=== PATIENT | male | born 1985 | race Caucasian/White ===

== ENCOUNTER 2019-06-04 12:02 | Emergency (ER) | payer BC ==
[~2019-06-04] VITALS: Ht 175.3 cm; Wt 106.1 kg
[2019-06-04 12:11] VITALS: BP 144/90
[2019-06-04] MEDS ORDERED: LIDOCAINE 0.5%-EPI 1:200,000 50 ML VIAL ONE (12:49)
--- NOTE | 2019-06-04 13:00 | NUR ---
INCISION AND DRAINAGE DON BY ROBERTO DURÁN.
--- NOTE | 2019-06-04 13:46 | NUR ---
Patient discharged to home in stable condition. Written and verbal after care instructions given. Patient verbalizes understanding of instruction.
== END 2019-06-04 13:47 | disposition home or self-care (01) ==
LOC: ER 12:08
DX: L02.31 Cutaneous abscess of buttock (principal); F31.9 Bipolar disorder, unspecified; Z98.890 Other specified postprocedural states
CPT/HCPCS: 10060; 99283; A6403; J3490

== ENCOUNTER 2019-06-06 20:50 | Emergency (ER) | payer BC ==
[~2019-06-06] VITALS: Ht 175.3 cm; Wt 104.3 kg
--- NOTE | 2019-06-06 20:54 | NUR ---
"S/P ABCESS REMOVAL 06/04, BEEN WEAK AND NAUSEATED SINCE. BEEN DRY HEAVING AT AMBULANCE" PT AAOX4, -SOB, NAD NOTED, VSS ,PENDING MD HADDAD
[2019-06-06] MEDS ORDERED: diphenhydrAMINE HCL 50 MG/ML VIAL IV ONE (21:00)
[2019-06-06] MEDS ORDERED: ONDANSETRON HCL/PF 4 MG/2 ML VIAL IVP ONE (21:00)
[2019-06-06] MEDS ORDERED: IV NS 0.9% 1,000 ML BAG IV ONE (21:00)
[2019-06-06] MEDS ORDERED: METOCLOPRAMIDE HCL 10 MG/2 ML VIAL IV ONE (21:00)
[2019-06-06] MEDS ORDERED: diphenhydrAMINE HCL 50 MG/ML VIAL ONE (21:08)
[2019-06-06] MEDS ORDERED: METOCLOPRAMIDE HCL 10 MG/2 ML VIAL ONE (21:09)
[2019-06-06] MEDS ORDERED: ONDANSETRON HCL/PF 4 MG/2 ML VIAL ONE ×2 (21:09→22:50)
[2019-06-06 21:11] LABS: BASOPHILS # (AUTO) 0.1 /CMM (0.0-0.2); BASOPHILS % (AUTO) 0.8 % (0.0-2.0); EOSINOPHILS % (AUTO) 0.6 % (0.0-6.0); HEMATOCRIT 45 % (39-51); HEMOGLOBIN 15.2 g/dL (13.5-17.5); LYMPHOCYTES # (AUTO) 1.2 /CMM (0.8-4.8); LYMPHOCYTES % (AUTO) 12.4 % (20.0-44.0); MEAN CORPUSCULAR HGB CONC 34 g/dl (31.0-36.0); MEAN CORPUSCULAR VOLUME 89 fL (80-96); MONOCYTES # (AUTO) 0.8 /CMM (0.1-1.30); MONOCYTES % (AUTO) 8.4 % (2.0-12.0); NEUTROPHILS # (AUTO) 7.3 /CMM (1.8-8.9); NEUTROPHILS % (AUTO) 77.8 % (43.0-81.0); PLATELET COUNT (AUTO) 303 /CMM (150-450); RED BLOOD CELL COUNT(AUTO) 5.02 MIL/uL (4.5-6.0); WHITE BLOOD COUNT (AUTO) 9.4 K/uL (4.3-11.0)
[2019-06-06 21:18] LABS: CALCIUM, SERUM 9.4 mg/dL (8.5-10.1); CREATININE 1.5 mg/dL (0.6-1.3); POTASSIUM 3.5 mmol/L (3.5-5.1)
[2019-06-06 21:24] LABS: BILIRUBIN,DIRECT 0.1 mg/dL (0.0-0.2); BILIRUBIN,TOTAL 0.3 mg/dL (0.2-1.0); TOTAL PROTEIN, SERUM 7.7 g/dL (6.4-8.2)
[2019-06-06 22:45] VITALS: BP 133/76
--- NOTE | 2019-06-06 23:15 | NUR ---
Patient does not wish to proceed with medical care recommended by Dr. Nunez. Patient given information related to possible complications, up to and including , which could occur as a result of leaving the hospital at this time. Patient verbalizes understanding of risks involved due to leaving against medical advice. Patient has signed AMA form.
== END 2019-06-06 23:19 | disposition left against medical advice (07) ==
LOC: ER 20:52
DX: G43.A0 Cyclical vomiting, in migraine, not intractable (principal); Z76.5 Malingerer [conscious simulation]; Z98.890 Other specified postprocedural states
CPT/HCPCS: 36415; 80048; 80076; 83690; 85025; 96374; 96375; 99283; J1200; J2405; J2765; J7030